=== PATIENT | female | born 1965 ===

== ENCOUNTER 2019-11-22 07:49 | Emergency (ER) | payer OTHER ==
[~2019-11-22] VITALS: Ht 162.6 cm; Wt 62.1 kg
[~2019-11-22 07:49] MED LIST: FLEXERIL10 MG PO; TRAMADOL HCL50 MG PO
[2019-11-22] MEDS ORDERED: KETO10TA2 PO (13:50)
[2019-11-22] MEDS ORDERED: TAMS0.4C PO (13:50)
== END 2019-11-22 15:23 | disposition home or self-care (01) ==
LOC: ER 07:49
DX: N20.1 Calculus of ureter (principal); R10.32 Left lower quadrant pain